=== PATIENT | female | born 1990 | race Caucasian/White ===

== ENCOUNTER 2022-12-09 14:04 | Outpatient (CLI) | payer BC, SELFPAY ==
[2022-12-09 15:42] LABS: Partial Thromboplastin Time 28.4 SECONDS (22.3-36.8)
== END 2022-12-09 14:05 | disposition home or self-care (01) ==
LOC: ANHGOSHLAB 14:12
PROVIDERS: Visit Provider Urology
DX: N20.1 Calculus of ureter (principal); Z01.818 Encounter for other preprocedural examination
CPT/HCPCS: 36415; 85610; 85730; 87077; 87086; 87186

== ENCOUNTER 2023-01-16 12:46 | Outpatient (CLI) | payer BC, SELFPAY ==
[2023-01-16 15:48] LABS: INR 0.9; Prothrombin Time 12.9 Seconds (11.1-14.7)
[2023-01-16 15:49] LABS: Partial Thromboplastin Time 30.4 SECONDS (22.3-36.8)
== END 2023-01-16 12:47 | disposition home or self-care (01) ==
PROVIDERS: PCP Nurse Practitioner Family; Visit Provider Urology
DX: Z01.818 Encounter for other preprocedural examination (principal); N20.0 Calculus of kidney
CPT/HCPCS: 36415; 85610; 85730; 87077; 87086; 87186

== ENCOUNTER 2023-01-23 00:38 | Day surgery (SDC) | payer BC, SELFPAY ==
[2022-12-02 09:49] VITALS: BMI 20.1
--- NOTE | 2022-12-02 09:53 | PC.NURSE ---
Report to the Outpatient Waiting Room, entrance under the green pavilion located off [facility], at time 6:00 on date 12/12/22. Planned Procedure Time: 7:30. Time changes happen often and if your time is changed the preop area will call you the afternoon before. - You and your visitor will be asked to self-screen and do not enter if you have any COVID symptoms. - A mask is optional within the hospital at this time. Patients may have clear liquids (water, carbonated beverages, clear teas, apple juice) until 3 hours prior to surgery (4:30) with a maximum of 20 ounces. - No food from midnight until time of surgery Take the following medications with a SIP of water the morning of surgery: NONE DO NOT STOP ANY OF YOUR OTHER PRESCRIPTION MEDICATIONS PRIOR TO SURGERY EXCEPT THE FOLLOWING Medications to discontinue per physician: N/A Date to take last dose: N/A Please no make-up, nail kosovan, hairspray, perfume, deodorant, or body powder the day of surgery. No jewelry (including any body piercings) or valuables the day of surgery, leave them at home. Please take a shower or bath the night before, or the morning of, surgery with an antibacterial soap. Wear comfortable, loose fitting clothing. - Jewelry must be removed prior to entering the operating room. Rings and piercings that are not removed may be cut off. - The hospital will not accept responsibility for valuables. - Please leave all valuables, including medications, at home the day of surgery. If you are going home after surgery, a licensed bulk driver must drive you home. - NO public transportation without another adult if you receive anesthesia. - We recommend that an adult stay with you for 24 hours following discharge. - We also recommend that you do not drive, make important decision, drink alcoholic beverages, or take any drugs that were not prescribed by your health care provider for at least 24 hours after your discharge time. Follow any additional instructions given to you from your surgeon. If you or anyone in your household have experienced Covid symptoms in the past week, please notify your surgeon or the nurse liaison at the phone number below for possible testing. Telephone instructions given to PT - TOÑA ARREAGA and asked if any additional questions and then verbalized understanding. Patient advised to call surgeon office or pre surgery nurse liaison [phone] if any additional questions.
--- NOTE | 2022-12-08 18:32 | P.HP_ITS ---
History of Present Illness History of Present Illness Consent: Risks, benefits, and alternatives have been discussed and questions answered. Patient agrees to proceed with procedure. Chief complaint: right ureteral stone Narrative: Amira Saucedo is a 32 year old femaleWho recently underwent CT imaging for following a strained rectus muscle. The CT demonstrated a 9 mm nonobstructing right renal stone and a 3 mm nonobstructing left renal stone. KUB failed to identify the stones but her urine pH was 8.5 suggesting that they are not uric acid stones. After discussion of options she has elected to proceed with right ESWL. If her stones are not visible on fluoroscopy we can either perform retrograde pyelography to outline a filling defect or proceed with right ureteroscopy. She is aware the risk of these procedures including, but not limited to, perinephric hematoma, need for additional procedures, need for stent placement. Review of Systems Review of Systems: All systems reviewed & are unremarkable except as noted in HPI and below PMFSH Social History Social History Smoking status: Never smoker Alcohol intake: never Substance use: never Substance use type: does not use Living arrangements: with family Spiritual care concerns: No Meds Home Medications and Allergies Home Medications Medication Instructions Recorded Confirmed Type dextroamphetamine-amphetamine 30 30 mg PO DAILY 12/02/22 12/02/22 History mg tablet Allergies Allergy/AdvReac Type Severity Reaction Status Date / Time No Known Allergies Allergy Verified 12/02/22 09:48 Exam Const: General: no acute distress Resp: Effort & Inspection: normal respiratory effort GI: Inspection: non-distended GI Palp: No abdominal tenderness and No Guarding due to palpation present (GI) Auscultation: normal bowel sounds Assessment and Plan Assessment and plan (1) Bilateral renal stones: Code(s): N20.0 - Calculus of kidney Status: Acute Assessment and Plan: * right ESWL
--- NOTE | 2022-12-11 09:32 | P.PNAN_ITS ---
Anes - Initial Pre Proc Eval Procedure: Operation Date: 12/12/22 07:30 Proposed Procedures p Right Extracorporeal Shock Wave Lithotripsy - Scar Steward MD Date/Time: 12/11/22 09:32 Surgeon: Scar Steward MD Pre Op Diagnosis: right ureteral stone Patient Data Age: 32 Gender: F Height: 1.57 m Weight: 49.9 kg Allergies Allergy/AdvReac Type Severity Reaction Status Date / Time No Known Allergies Allergy Verified 12/02/22 09:48 Home Medications Medication Instructions Recorded Confirmed Type dextroamphetamine-amphetamine 30 30 mg PO DAILY 12/02/22 12/02/22 History mg tablet Results Review: All pre-operative results and documents have been reviewed as part of the pre- operative evaluation. [facility] Past Medical History Medical History (Updated 12/11/22 @ 09:33 by Tanvir Vogel DO) ADHD Surgical History Surgical History (Updated 12/11/22 @ 09:33 by Tanvir Vogel DO) History of tonsillectomy History of tubal ligation Social History Social History Smoking status: Never smoker Alcohol intake: never Substance use: never Substance use type: does not use Living arrangements: with family Spiritual care concerns: No Anes - Eval Final PreProcedure Day of Procedure 12/11/22 09:32 Patient weight: normal Heart: regular rate and rhythm Lungs: clear to auscultation Airway: Mallampati scale class II Neurological: alert and oriented Last oral intake: >/= 8 hours ASA classification: II Emergent: no Anesthetic plan: proceed Anesthesia type and monitoring: general LMA and standard monitoring Results Review: All pre-operative results and documents have been reviewed as part of the pre- operative evaluation. Informed Consent: The patient's anesthetic plan and its attendant risks and benefits were discussed with the patient/family/POA. Questions were solicited and answers provided to the satisfaction of the patient/family/POA.
[2023-01-13 14:24] VITALS: BMI 20.1
--- NOTE | 2023-01-13 14:25 | PC.NURSE ---
Report to the Outpatient Waiting Room, entrance under the green pavilion located off [facility], at time 6:00 on date 01/23/23. Planned Procedure Time: 7:30. Time changes happen often and if your time is changed the preop area will call you the afternoon before. - You and your visitor will be asked to self-screen and do not enter if you have any COVID symptoms. - A mask is optional within the hospital at this time. Patients may have clear liquids (water, carbonated beverages, clear teas, apple juice) until 3 hours prior to surgery (4:30) with a maximum of 20 ounces. - No food from midnight until time of surgery Take the following medications with a SIP of water the morning of surgery: NONE DO NOT STOP ANY OF YOUR OTHER PRESCRIPTION MEDICATIONS PRIOR TO SURGERY EXCEPT THE FOLLOWING Medications to discontinue per physician: N/A Date to take last dose: N/A Please no make-up, nail kosovan, hairspray, perfume, deodorant, or body powder the day of surgery. No jewelry (including any body piercings) or valuables the day of surgery, leave them at home. Please take a shower or bath the night before, or the morning of, surgery with an antibacterial soap. Wear comfortable, loose fitting clothing. - Jewelry must be removed prior to entering the operating room. Rings and piercings that are not removed may be cut off. - The hospital will not accept responsibility for valuables. - Please leave all valuables, including medications, at home the day of surgery. If you are going home after surgery, a licensed automobile drivers must drive you home. - NO public transportation without another adult if you receive anesthesia. - We recommend that an adult stay with you for 24 hours following discharge. - We also recommend that you do not drive, make important decision, drink alcoholic beverages, or take any drugs that were not prescribed by your health care provider for at least 24 hours after your discharge time. Follow any additional instructions given to you from your surgeon. If you or anyone in your household have experienced Covid symptoms in the past week, please notify your surgeon or the nurse liaison at the phone number below for possible testing. Telephone instructions given to PT - TOÑA ARREAGA and asked if any additional questions and then verbalized understanding. Patient advised to call surgeon office or pre surgery nurse liaison [phone] if any additional questions.
--- NOTE | 2023-01-19 07:31 | P.HP_ITS ---
History of Present Illness History of Present Illness Consent: Risks, benefits, and alternatives have been discussed and questions answered. Patient agrees to proceed with procedure. Chief complaint: right ureteral stone Narrative: Amira Saucedo is a 32 year old female recently underwent CT imaging for a rectus abdominal strain. Although she has no prior history of urolithiasis the CT revealed bilateral kidney stones. She has a small nonobstructing stone on the left but a 9 mm stone in the right. Stones difficult to see on KUB but her urine pH suggest that these calcified. After discussion of options she is elected to proceed with right ESWL with the understanding that may need simultaneous cystoscopy with retrograde pyelography to identify the stone. She is aware of the risk of this procedure including, but not limited to, adverse cardiopulmonary events, need for additional procedures, perinephric hematoma. Review of Systems Review of Systems: All systems reviewed & are unremarkable except as noted in HPI and below PMFSH Past Medical History Medical History (Updated 12/11/22 @ 09:33 by Tanvir Vogel DO) ADHD Surgical History Surgical History (Updated 12/11/22 @ 09:33 by Tanvir Vogel DO) History of tonsillectomy History of tubal ligation Social History Social History Smoking status: Never smoker Alcohol intake: never Substance use: never Substance use type: does not use Living arrangements: with family Spiritual care concerns: No Meds Home Medications and Allergies Home Medications Medication Instructions Recorded Confirmed Type dextroamphetamine-amphetamine 30 30 mg PO DAILY 12/02/22 01/13/23 History mg tablet Allergies Allergy/AdvReac Type Severity Reaction Status Date / Time No Known Allergies Allergy Verified 01/13/23 14:24 Exam Const: General: no acute distress Resp: Effort & Inspection: normal respiratory effort GI: Inspection: non-distended GI Palp: No abdominal tenderness and No Guarding due to palpation present (GI) Auscultation: normal bowel sounds Assessment and Plan Assessment and plan (1) Bilateral renal stones: Code(s): N20.0 - Calculus of kidney Status: Acute Assessment and Plan: * Right ESWL
--- NOTE | 2023-01-19 07:40 | P.HP_ITS ---
History of Present Illness History of Present Illness Consent: Risks, benefits, and alternatives have been discussed and questions answered. Patient agrees to proceed with procedure. Chief complaint: right ureteral stone Narrative: Amira Saucedo is a 32 year old female who is status post endoscopic ureteral stone extraction. After stent removal and discussion of management for residual renal calculi she is elected for right ESWL. She is aware the risks including, but not limited to, adverse cardiopulmonary events, perinephric hematoma and need for additional procedures. Review of Systems Review of Systems: All systems reviewed & are unremarkable except as noted in HPI and below PMFSH Past Medical History Medical History (Updated 12/11/22 @ 09:33 by Tanvir Vogel DO) ADHD Surgical History Surgical History (Updated 12/11/22 @ 09:33 by Tanvir Vogel DO) History of tonsillectomy History of tubal ligation Social History Social History Smoking status: Never smoker Alcohol intake: never Substance use: never Substance use type: does not use Living arrangements: with family Spiritual care concerns: No Meds Home Medications and Allergies Home Medications Medication Instructions Recorded Confirmed Type dextroamphetamine-amphetamine 30 30 mg PO DAILY 12/02/22 01/13/23 History mg tablet Allergies Allergy/AdvReac Type Severity Reaction Status Date / Time No Known Allergies Allergy Verified 01/13/23 14:24 Exam Const: General: no acute distress Resp: Effort & Inspection: normal respiratory effort GI: Inspection: non-distended GI Palp: No abdominal tenderness and No Guarding due to palpation present (GI) Auscultation: normal bowel sounds Assessment and Plan Assessment and plan (1) Bilateral renal stones: Code(s): N20.0 - Calculus of kidney Status: Acute Assessment and Plan: * Right ESWL
--- NOTE | 2023-01-22 13:32 | WPDANESEPPF ---
Anes - Initial Pre Proc Eval Procedure: Operation Date: 01/23/23 07:30 Proposed Procedures p Right Extracorporeal Shock Wave Lithotripsy - Scar Steward MD Date/Time: 01/22/23 13:32 Surgeon: Scar Steward MD Pre Op Diagnosis: right ureteral stone Patient Data Age: 32 Gender: F Height: 1.57 m Weight: 49.9 kg Allergies Allergy/AdvReac Type Severity Reaction Status Date / Time No Known Allergies Allergy Verified 01/13/23 14:24 Home Medications Medication Instructions Recorded Confirmed Type dextroamphetamine-amphetamine 30 30 mg PO DAILY 12/02/22 01/13/23 History mg tablet Patient hx anesthesia problems: none Family hx anesthesia problems: none Results Review: All pre-operative results and documents have been reviewed as part of the pre-operative evaluation. [facility] Past Medical History Medical History (Updated 12/11/22 @ 09:33 by Tanvir Vogel DO) ADHD Surgical History Surgical History (Updated 12/11/22 @ 09:33 by Tanvir Vogel DO) History of tonsillectomy History of tubal ligation Social History Social History Smoking status: Never smoker Alcohol intake: never Substance use: never Substance use type: does not use Living arrangements: with family Spiritual care concerns: No Anes - Eval Final PreProcedure Day of Procedure 01/22/23 13:32 Patient weight: normal Heart: regular rate and rhythm Lungs: clear to auscultation Airway: Mallampati scale class II Neurological: alert and oriented Last oral intake: >/= 8 hours ASA classification: II Emergent: no Anesthetic plan: proceed Anesthesia type and monitoring: general LMA and standard monitoring Results Review: All pre-operative results and documents have been reviewed as part of the pre-operative evaluation. Informed Consent: The patient's anesthetic plan and its attendant risks and benefits were discussed with the patient/family/POA. Questions were solicited and answers provided to the satisfaction of the patient/family/POA.
[2023-01-23] VITALS (9 sets, daily range): BP systolic 118–133; BP diastolic 79–97; PULSE 62–84; RESP 12–20; TEMP 36.4–36.6; O2SAT 99–100
--- NOTE | ~2023-01-23 | XR_ITS ---
Supine and upright views of the abdomen Clinical history: Lithotripsy Findings: Bowel gas pattern is nonspecific. No evidence for obstruction or free air. Questionable rig ht renal stones measuring up to 6 mm. No definite left renal stones seen. Osseous structures are inta ct. Impression: Possible right renal stones, as above. Evaluation somewhat limited due to extensive bowel contents. Reviewed, dictated and finalized at location . Impression: Possible right renal stones, as above. Evaluation somewhat limited due to exten sive bowel contents.
--- NOTE | ~2023-01-23 | CT_ITS ---
Non-contrast CT scan of the Abdomen and Pelvis Clinical indication: Kidney stone Technique: 2.5 mm axial scans were obtained through the abdomen and pelvis without intravenous or or al contrast. Dose reduction technique was used on this scan by utilizing automated exposure control a nd iterative reconstruction technique. The dose-length product (DLP) was 170.99 mGy-cm. Findings: Images through the lung bases reveal no abnormalities. There is a probable 8 x 4 mm stone in the right renal pelvis. Additional 5 mm right lower pole renal stone present. No definite hydronephrosis. 4 mm left lower pole renal stone present. No left hydronep hrosis. Ureters are difficult to evaluate due to paucity of intra-abdominal fat, but no definite ston e seen along the expected courses. There is a 2.1 cm ovoid hypodense, noncystic mass in the right hepatic lobe (axial image [id number]), indet erminate. The spleen, pancreas, gallbladder, and adrenals appear normal. There is no aortic aneurysm . There is no evidence of bowel obstruction. Images through the pelvis were performed. There is no evidence of ascites or lymphadenopathy. Urinary bladder unremarkable. No adnexal mass evident. Impression: Bilateral renal calculi, as detailed above, largest stone probably in the right renal pelvis. No oj k hydronephrosis. No definite ureteral stones identified. Evaluation of ureters and bowel is limited due to marked pauc ity of intraabdominal fat. Reviewed, dictated and finalized at [facility]. Impression: Bilateral renal calculi, as detailed above, largest stone probably in the right renal pelvis. No amparo hydronephrosis. No definite ureteral stones identified. Evaluation of ureters and bowel is limi michi due to marked paucity of intraabdominal fat.
--- NOTE | 2023-01-23 06:21 | WPDHPUPDATE1 ---
History and Physical Update Update Date/Time: 01/23/23 06:21 History and Physical has been reviewed, including an updated exam of the patient. There are NO changes in the patient's condition. Risks, benefits, and alternatives have been discussed and questions answered. Patient agrees to proceed with procedure.
[2023-01-23] MEDS: LACTATED RINGERS 1,000 ML 30 ML IV CONT (07:30)
[2023-01-23] MEDS: ceFAZolin 2 GM/D5W 50 ML 2 GM/50 ML BAG IVPB (07:32)
--- NOTE | 2023-01-23 08:21 | W.PM.PROC2 ---
Procedure Note - Detailed Date of Procedure 01/23/23 Pre-op Diagnosis Bilateral renal stones Post-op Diagnosis Same Procedure Performed Right ESWL Surgeon Scar Steward MD Anesthesia General Description of Procedure The patient was brought to the operative suite where she was placed in the supine position on the Dornier lithotripsy table. The focal point of the lithotripter was placed first at a 9mm right renal pelvic calculus. A total of 1400 shocks were delivered at a power setting of 3. because there was such an early excellent fragmentation of the stone we treated small right calyceal stone additional 1000 shocks at same power setting appeared to fracture nicely. The patient tolerated the procedure well and was taken to the recovery room in good condition. Drains No Packing No Pathology None sent Complications No immediate complications
[2023-01-23] MEDS: oxyCODONE HCL (*CRX) 5 MG TAB IR PO (09:29)
--- NOTE | 2023-01-23 09:49 | SUR.PHASEII ---
0949 - MD Steward notified that pt states they are currently on Cephalexin for a UTI. Pt. can remain on cephalexin post op until Thursday per .
== END 2023-01-23 10:02 | disposition home or self-care (01) ==
PROVIDERS: PCP Nurse Practitioner Family; Visit Provider Urology
PROC: (CPT 50590; principal; 2023-01-23 07:30)
DX: N20.0 Calculus of kidney (principal); F90.9 Attention-deficit hyperactivity disorder, unspecified type
CPT/HCPCS: 50590; 74018; 74176; A9270; J0690; J1100; J2250; J2405; J2704; J7120